=== PATIENT | male | born 1945 | race Hispanic/Latino ===

== ENCOUNTER → 2017-11-20 | Day surgery (SDC) | payer OTHER ==
--- NOTE | 2017-11-19 11:00 | Diagnostic Imaging Report ---
PROCEDURE: X-RAY CHEST, TWO VIEWS COMPARISON: None. INDICATIONS: PREOPERATIVE CHEST XRAY FOR LEFT HEART CATH FINDINGS: Lungs are well-inflated. Linear opacity in the right lower lobe compatible with scar or subsegmental atelectasis. No consolidation, pleural effusion, or pneumothorax. Atherosclerotic calcification of the thoracic aorta. Normal heart size. No pulmonary edema. No acute osseous abnormality. Surgical clips project over the left and right lower cervical regions. CONCLUSION: Subsegmental atelectasis or scar in the right lower lobe. Otherwise no acute cardiopulmonary abnormality. Dictated by: Juanito Garsia M.D. on 11/19/2017 at 11:01 Electronically approved by: Juanito Garsia M.D. on 11/19/2017 at 11:01
[~2017-11-20] VITALS: Ht 170.2 cm; Wt 88.5 kg
[~2017-11-20] MED LIST: ACETYLCYSTEINE 200 MG/ML 4ML VIAL PO SCH; AMLODIPINE BESYL5 MG PO; ASPIR 8181 MG PEG; ATORVASTATIN CA10 MG PO; CARVEDILOL3.125 MG PO; CITALOPRAM HBR20 MG PO; CLOPIDOGREL75 MG PO; FENTANYL CITRATE/PF 100MCG/2 ML INJ ONE; FINASTERIDE5 MG PO; FUROSEMIDE40 MG PO; GLIMEPIRIDE2 MG PO; HEPARIN SOD/SOD CHLORIDE 2,000 ML ONE; HUMALOG MI100 UNITS/ SQ; IOPAMIDOL 370 MG/ML 200 ML INFUS..BTL INJ ONE; ISOSORBIDE DINI20 MG PO; LIDOCAINE HCL 2% LOCAL 20 ML VIAL ONE; LISINOPRIL10 MG PO; LOSARTAN POTASS25 MG PEG; LOSARTAN POTASS25 MG PO; METFORMIN HCL500 MG PO; METOPROLOL TART50 MG PO; MIDAZOLAM HCL 2 MG/2 ML VIAL ONE; NITROGLYCERIN0.4 MG SL; OMEGA-3 FISH1200 MG PO; OMEGA-31000 MG PO; PANTOPRAZOLE SO40 MG PO; SODIUM CHLORIDE 0.9% 1000ML 1,000 ML ONE; SPIRONOLACTONE25 MG PO; TAMSULOSIN HCL0.4 MG PO; TRADJENTA5 MG; VITAMIN D1000 UNI1 PO; [UNRECOGNIZED DRUG - OTHER]
--- OUTSIDE RECORDS SUMMARY | 2017-11-20 05:56 | XMS REPORT ---
Author [facility] Address Unknown Phone Unavailable Care Team Providers Care Shook Splicer Name Role Phone KRYS GIBBS Unavailable Unavailable Problems This patient has no known problems. Allergies, Adverse Reactions, Alerts This patient has no known allergies or adverse reactions. Medications This patient has no known medications. Results Test Description Test Time Test Comments Text Results Atomic Results Result Comments CHEST 2 VIEWS [place] [id number] Patient Name: BLAZE CALLOWAY MR #: [id number] : 1945 Age/Sex: 72/M Req # : [id number] Adm Physician: Ordered by: KRYS GIBBS MD Report #: [id number] Location: [facility] Room/Bed: Procedure: [id number] DX/CHEST 2 VIEWS Exam Date: Exam Time: REPORT STATUS: Signed PROCEDURE: X-RAY CHEST, TWO VIEWS COMPARISON: None. INDICATIONS: PREOPERATIVE CHEST XRAY FOR LEFT HEART CATH FINDINGS : Lungs are well-inflated. Linear opacity in the right lower lobe compatible with scar or subsegmental atelectasis. No consolidation, pleural effusion, or pneumothorax. Atherosclerotic calcification of the thoracic aorta. Normal heart size. No pulmonary edema. No acute osseous abnormality. Surgical clips project over the left and right lower cervical regions. CONCLUSION: Subsegmental atelectasis or scar in the right lower lobe. Otherwise no acute cardiopulmonary abnormality. Dictated by: Vannessa Hernandez M.D. on 11/19/2017 at 11:01 Electronically approved by: Vannessa Hernandez M.D. on 11/19/2017 at 11:01 Dictated By: VANNESSA HERNANDEZ MD [id number] Transcribed By: WARNER on 11/19/17 1101 COPY TO: KRYS GIBBS MD
[2017-11-20 07:03] LABS: BASOPHILS # (AUTO) 0.1 (0.0-0.1); BASOPHILS % 0.8 % (0.0-1.0); EOSINOPHILS # (AUTO) 0.6 (0.0-0.4); EOSINOPHILS % 7.3 % (0.0-6.0); HEMATOCRIT 35.9 % (38.2-49.6); HEMOGLOBIN 11.9 g/dL (14.0-18.0); LYMPHOCYTES # (AUTO) 2.2 (1.0-3.2); LYMPHOCYTES % 27.9 % (18.0-39.1); MEAN CORPUSCULAR HEMOGLOBIN 30.7 pg (28-32); MEAN CORPUSCULAR HGB CONC 33.1 g/dL (31-35); MEAN CORPUSCULAR VOLUME 92.8 fL (81-99); MONOCYTES # (AUTO) 0.9 (0.2-0.8); MONOCYTES % 11.4 % (4.4-11.3); NEUTROPHILS # (AUTO) 4.2 (2.1-6.9); NEUTROPHILS % 52.1 % (38.7-80.0); PLATELET COUNT 144 x10e3/uL (140-360); RED BLOOD COUNT 3.87 x10e6/uL (4.3-5.7); RED CELL DISTRIBUTION WIDTH 12.7 % (11.7-14.4)
[2017-11-20 07:18] LABS: INR 1.02; PROTHROMBIN TIME 12.6 seconds (11.9-14.5)
[2017-11-20 07:19] LABS: PARTIAL THROMBOPLASTIN TIME 28.3 seconds (23.8-35.5)
[2017-11-20 07:34] LABS: ALBUMIN 3.4 g/dL (3.5-5.0); ANION GAP 12.4 mmol/L (8-16); CALCIUM 9.8 mg/dL (8.4-10.2); CREATININE, SERUM 1.88 mg/dL (0.72-1.25); POTASSIUM 5.4 mmol/L (3.5-5.1)
[2017-11-20 07:59] VITALS: BP 162/72
--- NOTE | 2017-11-20 17:02 | Operative Report ---
DATE OF PROCEDURE: November 20, 2017 PROCEDURES PERFORMED: 1. Left heart catheterization. 2. Selective coronary angiogram. INDICATIONS: Abnormal stress test. ANESTHESIA: Versed and fentanyl for conscious sedation and 2% lidocaine for local anesthesia. REQUESTING PHYSICIAN: Dr. Jo. DESCRIPTION OF PROCEDURE: After informed consent, the patient was brought to the cardiac catheterization laboratory and placed on the table. Patient had renal insufficiency and was hydrated prior to the procedure. Patient was informed about the risk of contrast-induced nephropathy. Lidocaine was injected in the right groin for local anesthesia. Right femoral artery was accessed by Seldinger technique, and a 5-Chinese sheath was placed in the right femoral artery. Left main artery was cannulated using a JL4, 5-Chinese catheter. Coronary angiogram was performed, and images were obtained in multiple views. The right coronary artery was cannulated using a 3DRC 5-Chinese catheter. Coronary angiogram was performed. Images were obtained in multiple views. No LV gram was performed due to renal failure. Patient tolerated the procedure without any complications. REPORT: LEFT MAIN: Normal caliber and does not appear to have any significant stenosis. LEFT ANTERIOR DESCENDING: Normal caliber and has mild luminal irregularities. LEFT CIRCUMFLEX: Large-caliber dominant vessel has a 20% distal lesion. The 1st obtuse mild branch is a large branch and has about a 40% mid lesion. RIGHT CORONARY ARTERY: A narrow-caliber nondominant vessel and has luminal irregularities. PLAN: Medical management. Job#: [id number]
== END | disposition home or self-care (01) ==
LOC: CATH LAB 05:54
DX: I25.10 Atherosclerotic heart disease of native coronary artery without angina pectoris (principal); R94.39 Abnormal result of other cardiovascular function study; I11.0 Hypertensive heart disease with heart failure; I50.9 Heart failure, unspecified; I73.9 Peripheral vascular disease, unspecified; R00.2 Palpitations; R01.1 Cardiac murmur, unspecified; I34.0 Nonrheumatic mitral (valve) insufficiency; I36.1 Nonrheumatic tricuspid (valve) insufficiency; R07.2 Precordial pain; M40.00 Postural kyphosis, site unspecified; E11.40 Type 2 diabetes mellitus with diabetic neuropathy, unspecified; E11.65 Type 2 diabetes mellitus with hyperglycemia; K21.9 Gastro-esophageal reflux disease without esophagitis; N28.9 Disorder of kidney and ureter, unspecified; Z01.810 Encounter for preprocedural cardiovascular examination; Z01.812 Encounter for preprocedural laboratory examination; Z01.818 Encounter for other preprocedural examination; Z79.4 Long term (current) use of insulin; Z79.82 Long term (current) use of aspirin; Z68.34 Body mass index [BMI] 34.0-34.9, adult; Z82.49 Family history of ischemic heart disease and other diseases of the circulatory system
CPT/HCPCS: 36415; 71046; 77002; 80053; 80061; 85025; 85610; 85730; 93005; 93458; J2001; J2250; J7030; Q9967; 36140

== ENCOUNTER → 2022-01-12 | Day surgery (SDC) | payer MEDICARE ==
[~2022-01-12] MED LIST changes: -ACETYLCYSTEINE 200 MG/ML 4ML VIAL PO SCH; -ASPIR 8181 MG PEG; +ASPIR 8181 MG PO; -FENTANYL CITRATE/PF 100MCG/2 ML INJ ONE; -HEPARIN SOD/SOD CHLORIDE 2,000 ML ONE; -IOPAMIDOL 370 MG/ML 200 ML INFUS..BTL INJ ONE; -LIDOCAINE HCL 2% LOCAL 20 ML VIAL ONE; +LIDOCAINE HCL 2% LOCAL INJ 5 ML SDV VIAL INJ ONE; -MIDAZOLAM HCL 2 MG/2 ML VIAL ONE; +PROPOFOL IV EMULSION 10 MG/ML 20 ML VIAL ONE; -SODIUM CHLORIDE 0.9% 1000ML 1,000 ML ONE
[2022-01-12 07:54] LABS: BASOPHILS # (AUTO) 0.1 (0.0-0.1); BASOPHILS % 0.7 % (0.0-1.0); EOSINOPHILS # (AUTO) 0.6 (0.0-0.4); EOSINOPHILS % 6.9 % (0.0-6.0); HEMATOCRIT 40.2 % (38.2-49.6); HEMOGLOBIN 12.4 g/dL (14.0-18.0); LYMPHOCYTES # (AUTO) 2.5 (1.0-3.2); MEAN CORPUSCULAR HEMOGLOBIN 29.4 pg (28-32); MEAN CORPUSCULAR HGB CONC 30.8 g/dL (31-35); MEAN CORPUSCULAR VOLUME 95.3 fL (81-99); MONOCYTES # (AUTO) 0.7 (0.2-0.8); NEUTROPHILS # (AUTO) 4.7 (2.1-6.9); NEUTROPHILS % 54.8 % (38.7-80.0); PLATELET COUNT 174 x10e3/uL (140-360); RED BLOOD COUNT 4.22 x10e6/uL (4.3-5.7); RED CELL DISTRIBUTION WIDTH 13.8 % (11.7-14.4)
[2022-01-12 10:29] VITALS: BP 160/84
== END | disposition home or self-care (01) ==
LOC: OR 07:02
PROVIDERS: ATTEND Internal Medicine Gastroenterology
DX: Z12.11 Encounter for screening for malignant neoplasm of colon (principal); K63.5 Polyp of colon; K57.30 Diverticulosis of large intestine without perforation or abscess without bleeding; K64.8 Other hemorrhoids; K21.9 Gastro-esophageal reflux disease without esophagitis; Z71.3 Dietary counseling and surveillance; E66.9 Obesity, unspecified; Z78.9 Other specified health status; G47.33 Obstructive sleep apnea (adult) (pediatric); I25.810 Atherosclerosis of coronary artery bypass graft(s) without angina pectoris; I25.2 Old myocardial infarction; E11.22 Type 2 diabetes mellitus with diabetic chronic kidney disease; I13.0 Hypertensive heart and chronic kidney disease with heart failure and stage 1 through stage 4 chronic kidney disease, or unspecified chronic kidney disease; N18.9 Chronic kidney disease, unspecified; I50.9 Heart failure, unspecified; Q60.0 Renal agenesis, unilateral; R42 Dizziness and giddiness; Z20.822 Contact with and (suspected) exposure to COVID-19; Z79.82 Long term (current) use of aspirin; Z79.4 Long term (current) use of insulin; Z79.899 Other long term (current) drug therapy; Z68.33 Body mass index [BMI] 33.0-33.9, adult; Z86.73 Personal history of transient ischemic attack (TIA), and cerebral infarction without residual deficits; Z95.1 Presence of aortocoronary bypass graft
CPT/HCPCS: 36415; 45385; 82948; 85025; 93005; J2001; J2704; U0002; 45378